=== PATIENT | male | born 1980 | race Caucasian/White ===

== ENCOUNTER 2016-12-03 14:40 | Inpatient (IN) | payer OTHER ==
--- NOTE | ~2016-12-03 | OP ---
Record Of Operation [facility] [address] [place]. [address] NAME: ARISTEO MUNGUIA : 76 STATUS : ADM IN [facility]#: [id number] AGE: 36 ADM/REG DATE : 12/03/16 MR#: [id number] REPORT SERV DATE: 12/04/16 DICTATED BY: JUICE TAYLOR DATE: 12/04/16 REPORT STATUS : Draft TRANSCRIBED BY: MODMarsha DATE: 12/04/16 DATE OF PROCEDURE: 12/04/2016 STRAIGHT TRUCK DRIVER: Romina Fischer. PREOPERATIVE DIAGNOSIS: Loculated left parapneumonic effusion. POSTOPERATIVE DIAGNOSIS: Loculated left parapneumonic effusion. OPERATION/PROCEDURE PERFORMED: 1. Left video-assisted thoracic surgery. 2. Left decortication. SPECIMENS REMOVED: Pleural peel and fluid. ESTIMATED BLOOD LOSS: 30 mL. COMPLICATIONS: None. INDICATIONS FOR PROCEDURE: Mr. Munguia is a 36-year-old gentleman, morbidly obese with a history of a rapidly enlarging loculated right pleural effusion. Risks, benefits, and alternatives were discussed with the patient. He was taken to the operating room. DESCRIPTION OF PROCEDURE: The patient was brought to the operating room and placed supine on the operating room table. After satisfactory induction of general endotracheal anesthesia, the bronchial ina was then placed. He was then log rolled in the left lateral decubitus position. Axillary roll was placed. Beanbag was aspirated. He was prepped and draped in the usual sterile fashion. A 3 cm incision was made in the seventh intercostal space in the mid axillary line. Skin and subcutaneous tissues were divided. The chest wall was encountered. The chest was entered in the interspace going over the rib. Wound protector was placed and the camera was introduced. There was a lot of inflammation, and working through the port, the loculated effusion was drained. Lung was freed up anteriorly, posteriorly, inferiorly to superiorly and medial to laterally. All the obvious peel was removed, sent for culture. The pleural fluid was sent for Gram stain and culture as well. The lung was inflated, it was felt that the lung filled the space, and the chest was irrigated, 32-Pashto chest tube was then placed to the apex and secured. The procedure was then terminated. The incision was closed with 0 Vicryl, 2-0 PDS, 3-0 PDS, and 4-0 Monocryl. Dry sterile dressings were placed. Chest tube was hooked to a bottle and then the patient was taken the CVICU on the ventilator. Khalida/RACHEL Juice Taylor MD Record Of [address] [address] NAME: ARISTEO MUNGUIA : 76 STATUS : ADM IN PAT#: [id number] AGE: 36 ADM/REG DATE : 12/03/16 MR#: [id number] REPORT SERV DATE: 12/04/16 DICTATED BY: JUICE TAYLOR DATE: 12/04/16 REPORT STATUS : Draft TRANSCRIBED BY: RACHEL DATE: 12/04/16 / [id number] CC: Juice Taylor MD
--- NOTE | ~2016-12-03 | DS ---
Discharge Summary [facility] [address] [place]. [address] NAME: ARISTEO MUNGUIA : 76 STATUS : DIS IN PAT#: [id number] AGE: 36 ADM/REG DATE : 12/03/16 MR#: [id number] REPORT SERV DATE: 12/19/16 DICTATED BY: JUICE TAYLOR DATE: 12/18/16 REPORT STATUS : Draft TRANSCRIBED BY: MODMarsha DATE: 12/18/16 Data Collection from hospitalization DISCHARGE DIAGNOSES: 1. Right pleural effusion-MRSA positive-empyema. 2. Type 2 diabetes mellitus. 3. Obstructive sleep apnea. 4. Renal insufficiency. 5. Morbid obesity. 6. Hypertension. CONSULTATIONS: Dr. Stephan Mckay, Dr. Johnie Causey. PROCEDURES PERFORMED: Right video-assisted thoracic surgery, right total decortication, 12/04/2016. DISCHARGE MEDICATIONS: Celexa 10 mg daily, Bydureon 2 mg subcutaneously every seven days, Lantus 50 units subcutaneously at bedtime, Humalog 25 units subcutaneously before meals and as instructed, Prinivil 20 mg daily, Glucophage 1000 mg with breakfast and supper, Percocet 10/325 one tablet every four hours as needed, vancomycin 1.5 g IV every 8 hours. CONDITION AT DISCHARGE: Stable. DISPOSITION: The patient was discharged home to be followed by Home Health Care on a 2000- calorie diabetic diet with activities as instructed. He would follow up with me, 01/01/[address] Johnie Causey, three weeks following discharge. HOSPITAL COURSE: This is a 36-year-old man who had the flu approximately a week and half prior to this admission. He has persistent illness and began to have nausea and vomiting and re-presented to the [place] emergency room twice on the week of this admission and was sent home without any intervention. He re-presented to [facility] and was hospitalized and had a CT scan performed, Saturday prior to this admission, which showed some basilar consolidation in the right lung without significant pleural effusion. He had severe pleuritic pain with inspiration and increasing shortness of breath. Repeat CT scan was performed on the day of this admission, which showed a very large right pleural effusion with near complete filling of the right chest and compressive atelectasis of most of the right lung. Because of this we were asked to transfer him to consider a surgical decortication. He was transferred here and admitted for further evaluation and treatment. Upon admission, CT scan of the chest had shown a large right pleural effusion with compressive atelectasis at nearly of the complete right lung. There was no pulmonary embolus or other acute findings noted. White count was 22.5. It was felt that the patient would need to undergo surgical decortication. The following day, the patient was taken to the operating room where he underwent the above-mentioned procedure, he tolerated this well, there were no complications. Postoperatively, he was seen by Dr. Stephan Mckay regarding ventilator management. He was now in the Cardiovascular ICU on the ventilator. His creatinine level was 1.3, white count was 31,000. Some ventilator changes were made by increasing his respiratory rate. Follow up ABG would be performed and we would continue to Discharge Summary [address] [place]. [address] NAME: ARISTEO MUNGUIA : 76 STATUS : DIS IN PAT#: [id number] AGE: 36 ADM/REG DATE : 12/03/16 MR#: [id number] REPORT SERV DATE: 12/19/16 DICTATED BY: JUICE TAYLOR DATE: 12/18/16 REPORT STATUS : Draft TRANSCRIBED BY: RACHEL DATE: 12/18/16 wean his ventilator as tolerated. He was going to be started on bronchodilator protocol. For sedation we were using Precedex and fentanyl. We would avoid propofol for now given his borderline blood pressure. While he was on the ventilator, he would be provided daily awakening trials to assess his mental status. On postop day one, he was extubated. His creatinine level was stable. Blood pressure was controlled. Levophed was being weaned. He was seen by Dr. Johnie Causey regarding empyema. The microbiology lab at [facility] revealed that one off two blood cultures had been growing coagulase negative Staph in the respiratory panel-presumably from the sputum. Here his pleural fluid culture was growing gram-positive cocci. Pleural peel was negative so far. Tracheal aspirate culture was growing Staph aureus. The patient had received Ancef at surgery and then levofloxacin. He reported an episode of nausea and vomiting while he was still at home as well as some constipation. His urination was a little slow. He had reported no skin lesions. He has no history of staph infections or boils. White blood cell count was 24. Creatinine was 1.0. He has been treated with Tamiflu for recent influenza. Vancomycin was going to begin, it was felt that he would probably not need levofloxacin unless there was some additional growth in the cultures. Ancef was stopped. He suggest changing the IV line from the IJ to another location with less risk for infection. antibiotics would be at least two weeks, but with empyema, it may be longer, as long as four to six weeks. On 12/06/2016, a PICC line was inserted. His T-max was 100.3. The next day he was up sitting in a chair, he said he was feeling good, he had no new complaints. His pain was tolerable. He was ambulatory. His chest tube was removed, we encouraged him to mobilize. Sliding scale insulin continued. Creatinine was stable and at baseline. He continued to do well. Discharge planning was performed on 12/08/2016. Discharge instructions were given. Due to his improved and stable condition, he was discharged home with the above-stated instructions. Information collected by: Melida Ackerman I submit the above information as my discharge summary. TG/RACHEL Juice Taylor MD / [id number] CC: Johnie Causey M.D.
--- NOTE | ~2016-12-03 | CN ---
Consultation Report [facility] [address] [place]. [address] NAME: ARISTEO MUNGUIA : 76 STATUS : ADM IN PAT#: [id number] AGE: 36 ADM/REG DATE : 12/03/16 MR#: [id number] REPORT SERV DATE: 12/04/16 DICTATED BY: CHELO MCKAY DATE: 12/04/16 REPORT STATUS : Draft TRANSCRIBED BY: MODL DATE: 12/04/16 CONSULT NOTE DATE OF CONSULTATION: 12/04/2016 REASON FOR CONSULTATION: Ventilator management. HISTORY OF PRESENT ILLNESS: The patient is a 36-year-old white gentleman with past medical history of type 2 diabetes as well as hypertension and sleep apnea, who was sent here for possible VATS procedure. Per the patient's chart, he had a flu illness about a week and a half ago that was associated with nausea and vomiting, and he presented to the emergency room at [facility] earlier this week. At which time, he was admitted and had a CT scan over the weekend that showed right basilar consolidation with no significant pleural effusion. He then had worsening pleuritic chest pain as well as increasing shortness of breath and had a followup CT scan performed earlier today that showed a very large right-sided effusion with atelectasis of the right lung and concerning for possible complicated parapneumonic effusion. He was then transferred here earlier today where he underwent a right-sided VATS with decortication and chest tube placement by Dr. Anguiano. He now comes to the CVICU on the ventilator. We are consulted for assistance of ventilator management. PAST MEDICAL HISTORY: 1. Hypertension. 2. Type 2 diabetes. 3. Obesity. 4. Sleep apnea. 5. History of knee arthroscopy. ALLERGIES: NO KNOWN DRUG ALLERGIES. SOCIAL HISTORY: No tobacco, alcohol, or IV drug abuse. FAMILY HISTORY: Positive for CVA and coronary artery disease in father. Mother had diabetes. Several healthy siblings. REVIEW OF SYSTEMS: Unable to obtain secondary to sedation and intubation. PHYSICAL EXAMINATION: VITAL SIGNS: Temperature 101.2, heart rate 123, respiratory rate 18, blood pressure 151/69. GENERAL: Sedated, intubated. HEENT: ET tube in place. Pupils equal, round, and reactive to light. NECK: Supple. Nontender. No lymphadenopathy. No thyromegaly. No jugular venous distention. LUNGS: Coarse breath sounds bilaterally. Consultation Report [facility] [address] [place]. [address] NAME: ARISTEO MUNGUIA : 78 STATUS : ADM IN PAT#: [id number] AGE: 36 ADM/REG DATE : 12/03/16 MR#: [id number] REPORT SERV DATE: 12/04/16 DICTATED BY: CHELO MCKAY DATE: 12/04/16 REPORT STATUS : Draft TRANSCRIBED BY: RACHEL DATE: 12/04/16 CARDIOVASCULAR: Tachycardic. No murmurs, rubs, or gallops. ABDOMEN: Soft, nontender, nondistended. Positive bowel sounds. No hepatosplenomegaly. EXTREMITIES: No cyanosis, clubbing, or edema. NEURO: Sedated. PSYCH: Unable to assess. LABS AND IMAGING: CBC with a white count of 31,000 with 77% neutrophils and 4% bands. Metabolic profile remarkable for BUN of 25, creatinine of 1.3. Initial blood gas with pH of 7.25, pCO2 of 56, PO2 of 82. ASSESSMENT AND PLAN: The patient is a 36-year-old gentleman with past medical history of diabetes and hypertension, who is now postop day #0 for right-sided VATS with decortication, chest tube placement for complicated parapneumonic effusion, currently on the ventilator. We are consulted to assist in ventilator management. We have made some ventilator changes by increasing his respiratory rate. We will get a followup ABG and continue to wean his ventilator as tolerated. Doubtful that he will be able to extubate tonight will likely be sometime in the next 24 to 48 hours. We will also start him on bronchodilator protocol. For sedation, we are using Precedex and fentanyl. Would avoid propofol for now given his borderline blood pressure. While he has been on the ventilator, we will provide daily awakening trials to assess mental status. We will continue follow along the patient with you. Please call with questions. I appreciate the consult. DARIAN/RACHEL Chelo Mckay MD / [id number] CC: eJremy Mercado Jr., M.D.
--- NOTE | ~2016-12-03 | HP ---
History And Physical [place] [address] [facility] [place]. [address] NAME: ARISTEO MUNGUIA : 76 STATUS : ADM IN [facility]#: [id number] AGE: 36 ADM/REG DATE : 12/03/16 MR#: [id number] REPORT SERV DATE: 12/04/16 DICTATED BY: JUICE TAYLOR DATE: 12/03/16 REPORT STATUS : Draft TRANSCRIBED BY: MODMarsha DATE: 12/03/16 DATE OF ADMISSION: 12/03/2016 REASON FOR ADMISSION: Large right pleural effusion. BRIEF HISTORY: This is a 36-year-old white male who had the flu in approximately a week and half ago. He had persistent illness and began having nausea, vomiting, and re-presented to [facility] twice this week and was sent home without any intervention. He re presented to [facility] and was hospitalized and underwent CT scan on Saturday, which showed some basilar consolidation in the right lung without significant pleural effusion. He had severe pleuritic pain with inspiration and increasing shortness of breath. Repeat CT scan was performed today, which showed a very large right pleural effusion with near complete filling of the right chest and compressive atelectasis of most of the right lung. Because of this, we were asked to transfer him to consider a surgical decortication. PAST MEDICAL HISTORY: Significant for hypertension; type 2 diabetes, insulin-dependent; obesity; and sleep apnea. PAST SURGICAL HISTORY: Includes a knee arthroscopy. ALLERGIES: NONE. HOME MEDICATIONS: Include Celexa 10 mg p.o. daily; Bydureon extended release injection 2 mg subcu q.7 days on Saturday; Lantus 50 units subcutaneous at bedtime; Humalog 25 units subcu before meals; Humalog sliding scale with blood sugar of 150 to 200 of 2 units, 200 to 250 of 4 units, 250 to 300 of 6 units; lisinopril 20 mg p.o. daily; and Glucophage 1000 mg p.o. with breakfast and supper. FAMILY HISTORY: Significant for father dying at age 67 of a stroke and myocardial infarction. Mother at age 57, complications from diabetes. He has two living sisters who are healthy with no problems and one brother who is healthy with no problems. SOCIAL HISTORY: This patient is with three children and works at [employer]. He does not smoke, he has never done so. He denies any drug use and has not drank alcohol in approximately five months. REVIEW OF SYSTEMS: Significant for chest pain, pleuritic in nature and shortness of breath. A complete 12- point review of systems done and all other systems negative except the above-mentioned pertinent positives in the history of present illness. PHYSICAL EXAMINATION: GENERAL: Alert, appearing his stated age, in no acute distress currently. CONSTITUTIONAL WITH VITAL SIGNS: 93% sat on 5 L, blood pressure 145/68, temperature 98.2, pulse 94, respirations 16 to 18 per minute, weight 170 kilos, and height 190.5 cm. HEAD, EARS, EYES, NOSE, AND THROAT: Normocephalic, atraumatic. Pupils equal, round, and History And Physical [address] [address] NAME: ARISTEO MUNGUIA : 76 STATUS : ADM IN [facility]#: [id number] AGE: 36 ADM/REG DATE : 12/03/16 MR#: [id number] REPORT SERV DATE: 12/04/16 DICTATED BY: JUICE TAYLOR DATE: 12/03/16 REPORT STATUS : Draft TRANSCRIBED BY: RACHEL DATE: 12/03/16 react to light. Ears, nose, and throat without drainage, lesions, or exudates noted. NECK: Supple. No lymphadenopathy, JVD, or bruits noted. Trachea midline with no obvious goiter. CHEST: Symmetrical with bilateral movement. No chest wall deformities noted. No axillary lymphadenopathy noted. CARDIOVASCULAR: Regular rate and rhythm, S1, S2. No gallop, murmur, or rub. RESPIRATORY: Decreased breath sounds in the right chest, left clear. No use of accessory muscles noted. GASTROINTESTINAL: Abdomen is soft, nontender, nondistended. Positive bowel sounds in all 4 quadrants. No hepatosplenomegaly noted. : The patient voids without difficulty, otherwise deferred. NEUROLOGICAL: All 12 cranial nerves intact. No focal neurologic deficits noted. SKIN: Warm and dry with no breakdown or lesions noted. Normal turgor. MUSCULOSKELETAL: Without obvious bony abnormalities. There is normal range of motion in all 4 extremities. EXTREMITIES: Without clubbing, cyanosis, or edema. 3+ pulses bilaterally. PSYCH: Normal mood, affect, and pleasant. Answers all questions appropriately. HEMATOLOGIC/LYMPHATIC: Without any obvious supraclavicular, axillary, or cervical lymphadenopathy. There is no ecchymosis or petechiae noted. DIAGNOSTIC DATA: CT of the chest performed today showing a large right pleural effusion with compressive atelectasis of nearly complete right lung. There is no pulmonary embolus or other acute findings noted. LABORATORY DATA: Performed on 12/02/2016 white blood count 22.5, hemoglobin 13.9, hematocrit 41.7, platelets 342. Sodium 131, potassium 4.3, BUN 29, creatinine 1.32, glucose 202, ALT 35, AST 12, alkaline phos 61, A1c 7.6. PROBLEM LIST: 1. Right pleural effusion. 2. Pleurisy. 3. Hypoxemia. 4. Insulin-dependent diabetes mellitus type 2. 5. Acute kidney injury with a creatinine of 1.3. 6. Obstructive sleep apnea. 7. Hypertension. 8. Obesity. IMPRESSION AND PLAN: A 36-year-old white male with a very large right pleural effusion with near complete compression of the right lung, likely parapneumonic in nature with his recent pleuritic type symptoms. He is currently stable, in no acute distress but still having extensive pleuritic pain with inspiration. CT today shows rapidly recurring pleural effusion when compared to two days ago. I see no other real alternative other than to proceed on with surgical decortication in this situation. I discussed the risks, benefits, and expected outcomes with the patient and his family and reviewed all of the films with him. They are in agreement to proceed. We will plan to proceed with surgery tomorrow afternoon. History And Physical [address] [address] NAME: ARISTEO MUNGUIA : 76 STATUS : ADM IN [facility]#: [id number] AGE: 36 ADM/REG DATE : 12/03/16 MR#: [id number] REPORT SERV DATE: 12/04/16 DICTATED BY: JUICE TAYLOR DATE: 12/03/16 REPORT STATUS : Draft TRANSCRIBED BY: RACHEL DATE: 12/03/16 DICTATED BY: REILLY Zuniga/RACHEL Juice Taylor MD / [id number] CC: Jeremy Mercado Jr., M.D.
--- NOTE | ~2016-12-03 | CN ---
Consultation Report [facility] [address] [place]. [address] NAME: ARISTEO MUNGUIA : 76 STATUS : ADM IN PAT#: [id number] AGE: 36 ADM/REG DATE : 12/03/16 MR#: [id number] REPORT SERV DATE: 12/05/16 DICTATED BY: JOHNIE CHANG DATE: 12/05/16 REPORT STATUS : Draft TRANSCRIBED BY: RACHEL DATE: 12/05/16 INFECTIOUS DISEASE CONSULT DATE OF CONSULTATION: REASON FOR CONSULT: Empyema. HISTORY OF PRESENT ILLNESS: A 36 years old white male with morbid obesity, hypertension and diabetes, was transferred from [facility] for empyema. About ten days prior to this admission, he became ill with a cough, had congestion and was diagnosed with influenza by his PCP. Was treated with Tamiflu. Several days later, he tried to go to work, but developed shortness of breath and dyspnea on exertion. He went two or three times to emergency rooms in the [place] because of the shortness of breath and also developed some right-sided chest pain increased by deep breaths. Apparently, he did not receive any additional treatment. He went home, but the pain and the shortness of breath increased, so he called an ambulance and was taken to [facility] around 12/01. There, he had severe leukocytosis. A CT scan showed right lower lobe and right middle lobe consolidations, possibly some early right upper lobe consolidation. He was started on Levaquin. Followup CT showed loculated moderate-sized effusion and for that reason, he was transferred to [facility] yesterday on the . I discussed with Microbiology Lab at [facility], and I was told that one of two blood cultures on admission are growing coagulase-negative Staph in the respiratory panel, I presume from the sputum, and I presume by some form of nucleic acid amplification. It came positive for MRSA with a positive Celestine-Caba gene. After being transferred to [facility], he was taken to the operating room and had a thoracoscopic decortication. There is a lot of inflammation. The pleural fluid culture is growing gram-positive cocci. Pleural peel culture is negative so far, and the tracheal aspirate culture is growing Staph aureus. The patient received Ancef at surgery and then levofloxacin. He reported an episode of nausea and vomiting while he was still at home, maybe some constipation. The urination was a little slow. He reports no skin lesions. No history of staph infections or boils. PAST MEDICAL HISTORY: As I mentioned above. He tries to follow diabetic diet. FAMILY HISTORY: Coronary artery disease, stroke and diabetes. SOCIAL HISTORY: He works in [employer]. He is . Has three children. He thinks his boss had the flu recently. He has a dog and a pig. MEDICATIONS ON ADMISSION: Celexa, Bydureon insulin, lisinopril, and metformin. ALLERGIES: NONE. Consultation Report [facility] [address] [place]. [address] NAME: ARISTEO MUNGUIA : 76 STATUS : ADM IN [facility]#: [id number] AGE: 36 ADM/REG DATE : 12/03/16 MR#: [id number] REPORT SERV DATE: 12/05/16 DICTATED BY: JOHNIE CHANG DATE: 12/05/16 REPORT STATUS : Draft TRANSCRIBED BY: RACHEL DATE: 12/05/16 PHYSICAL EXAMINATION: GENERAL: He was extubated this morning. He is alert and awake. HEENT: He has no toothaches. Dentition seems to be in fair shape. He has a left wrist A- line and a right IJ line. LUNGS: Decreased over the right lung field. A little coarse on the left. HEART: Regular rhythm. Distant sounds. ABDOMEN: Obese, nontender to palpation. He has a right-side chest tube and a Garcia catheter. LAB WORK: Here, WBC 24, segments 84, bands 1, creatinine 1.0, hemoglobin 11. Urinalysis, with some protein, 0 bacteria, and 5 white blood cells. ASSESSMENT AND PLAN: 1. Right pneumonia with empyema, status post decortication. Postoperative day 1. 2. Recent influenza reported by the patient. Treated with Tamiflu. 3. History of diabetes, hypertension, and obesity. Preliminary cultures from [facility] and a test done at [facility] from the sputum suggest an MRSA infection. We will start vancomycin. He will probably not need levofloxacin unless there is some additional growth in cultures. Discontinue Ancef. Suggest changing the IV line from the IJ to another location with less risk of infection. The duration of antibiotics will be at least two weeks, but with empyema, it might be longer, as long as four to six weeks. I discussed with the patient and his . ELSIE/RACHEL Johnie Chang M.D. / [id number] CC: Jeremy Mercado Jr., M.D.
[2016-12-03] MEDS ORDERED: LANTUS SC (15:11)
[2016-12-03] MEDS ORDERED: HUMALOG SC ×2 (15:12→15:13)
[2016-12-03] MEDS ORDERED: BYDUREON2 MG SQ (15:14)
[2016-12-03] MEDS ORDERED: GLUCOPHAGE1000 MG PO (15:14)
[2016-12-03] MEDS ORDERED: PRIN20 PO (15:15)
[2016-12-03] MEDS ORDERED: CELEXA10 PO (15:15)
[2016-12-03 21:02] LABS: ASCORBIC ACID (UR NOT ORDER) NEG (NEG); BILIRUBIN, URINE NEGATIVE (NEG); KETONE, URINE NEGATIVE (NEG); LEUKOCYTE ESTERASE(NOT OR NEG (NEG); WBC (NOT ORDERED) (RFLEX) 5 (0-5)
[2016-12-04 05:11] LABS: HEMATOCRIT 35.3 % (40.0-51.0); HEMOGLOBIN 11.9 g/dL (13.6-17.8); MEAN CORPUS HGB CONC 33.7 g/dL (32.0-36.0); MEAN CORPUSCULAR HEMOGLOB 30.4 pg (26.0-34.0); MEAN CORPUSCULAR VOLUME 90.3 fL (80-100); MEAN PLATELET VOLUME 9.6 fL (9.2-13.0); PLATELET COUNT 294 10/3/uL (150-400); RBC DISTRIBUTION WIDTH 13.5 % (12.0-16.0); RED CELL COUNT 3.91 10/6/uL (4.7-6.1)
[2016-12-04 05:13] LABS: WHITE BLOOD CELLS 25.8 10/3/uL (4.5-10.5)
[2016-12-04 05:14] LABS: MANUAL DIFF YES %
[2016-12-04 05:18] LABS: INTERNATIONAL NORMAL RATI 1.3 UNITS (-); PARTIAL THROMBO TIME 37.1 SEC (22.5-37.2); PROTIME (NOT ORD) 16.5 SEC (12.0-14.5)
[2016-12-04 05:27] LABS: A/G RATIO 0.4 (0.7-1.9); ALBUMIN 2.2 G/DL (3.5-5.0); ALKALINE PHOSPHATASE 64 U/L (45-117); BUN (BLOOD UREA NITROGEN) 23 MG/DL (6-23); CALCIUM, SERUM 8.6 MG/DL (8.5-10.4); CHLORIDE, SERUM 100 MMOL/L (96-112); CO2 (CARBON DIOXIDE) 25 MMOL/L (24-34); CREATININE 1.25 MG/DL (0.70-1.30); GFR AFRICAN AMERICAN 84 ML/MIN (>=60); GFR NON AFRICAN AMERICAN 73 ML/MIN (>=60); GLOBULIN 4.9 G/DL (2.5-4.1); GLUCOSE, SERUM 158 MG/DL (60-99); POTASSIUM, SERUM 4.5 MMOL/L (3.5-5.3); SGOT(AST) 13 U/L (5-40); SGPT(ALT) 18 U/L (5-65); SODIUM, SERUM 135 MMOL/L (135-148); TOTAL PROTEIN 7.1 G/DL (6.0-8.5)
[2016-12-04 05:45] LABS: BAND NEUTROPHILS 9 %; LYMPHOCYTES 5 %; LYMPHOCYTES ABSOLUTE (CALC) 1.29 10/3/uL (0.67-4.30); MONOCYTES 14 %; MONOCYTES ABSOLUTE (CALC) 3.61 10/3/uL (0.21-1.20); PLATELET ESTIMATE ADQ (ADEQUATE); SEGMENTED NEUTROPHIL (0) 72 %; TOTAL NUCLEATED CELLS 100
[2016-12-04 05:46] LABS: RBC MORPHOLOGY NORM (NORMAL)
[2016-12-04 18:18] LABS: BE (BASE EXCESS) -4.3 MEQ/L (0 +/- 2.5); CARBOXYHEMOGLOBIN 0.9 % (0-3); HCO3 (ACTUAL BICARBONATE) 23.7 MEQ/L (23-27); HEMOBLOGIN CONTENT 13.1 G/DL (14-18); INSTRUMENT SERIAL # 11843; METHEMOGLOBIN 0.5 % (0-3); MODE CMV; O2 CONTENT 17.2 VOL% (18-24); OPERATOR ID 18642; PCO2 (CO2 TENSION) 56 MMHG (35-45); PO2 (O2 TENSION) 82 MMHG (79-93); SAMPLE Arterial; TIDAL VOLUME 800 ML; pH 7.25 (7.37-7.43)
[2016-12-04 18:50] LABS: HEMATOCRIT 36.5 % (40.0-51.0); HEMOGLOBIN 12.2 g/dL (13.6-17.8); MEAN CORPUS HGB CONC 33.4 g/dL (32.0-36.0); MEAN CORPUSCULAR HEMOGLOB 30.8 pg (26.0-34.0); MEAN CORPUSCULAR VOLUME 92.2 fL (80-100); MEAN PLATELET VOLUME 9.7 fL (9.2-13.0); PLATELET COUNT 399 10/3/uL (150-400); RBC DISTRIBUTION WIDTH 13.4 % (12.0-16.0); RED CELL COUNT 3.96 10/6/uL (4.7-6.1); WHITE BLOOD CELLS 31.6 10/3/uL (4.5-10.5)
[2016-12-04 18:51] LABS: MANUAL DIFF YES %
[2016-12-04 18:55] LABS: BUN (BLOOD UREA NITROGEN) 25 MG/DL (6-23); CALCIUM, SERUM 8.8 MG/DL (8.5-10.4); CHLORIDE, SERUM 99 MMOL/L (96-112); CO2 (CARBON DIOXIDE) 26 MMOL/L (24-34); CREATININE 1.37 MG/DL (0.70-1.30); GFR AFRICAN AMERICAN 75 ML/MIN (>=60); GFR NON AFRICAN AMERICAN 65 ML/MIN (>=60); GLUCOSE, SERUM 212 MG/DL (60-99); POTASSIUM, SERUM 4.9 MMOL/L (3.5-5.3); SODIUM, SERUM 136 MMOL/L (135-148)
[2016-12-04 19:07] LABS: BAND NEUTROPHILS 4 %; EOSINOPHILS 1 %; EOSINOPHILS ABSOLUTE (CALC) 0.32 10/3/uL (0.0-0.53); LYMPHOCYTES 4 %; LYMPHOCYTES ABSOLUTE (CALC) 1.26 10/3/uL (0.67-4.30); METAMYELOCYTES 4 %; MONOCYTES 8 %; MONOCYTES ABSOLUTE (CALC) 2.53 10/3/uL (0.21-1.20); MYELOCYTES 2 %; SEGMENTED NEUTROPHIL (0) 77 %; TOTAL NUCLEATED CELLS 100
[2016-12-04 19:08] LABS: PLATELET ESTIMATE ADQ (ADEQUATE); TOXIC GRANULATION SLT
[2016-12-04 20:05] LABS: CARBOXYHEMOGLOBIN 0.4 % (0-3); HCO3 (ACTUAL BICARBONATE) 20.5 MEQ/L (23-27); INSTRUMENT SERIAL # 11843; METHEMOGLOBIN 0.4 % (0-3); MODE SIMV; O2 CONTENT 16.4 VOL% (18-24); OPERATOR ID 13415; PCO2 (CO2 TENSION) 40 MMHG (35-45); PO2 (O2 TENSION) 107 MMHG (79-93); SAMPLE Arterial; TIDAL VOLUME 800 ML; pH 7.33 (7.37-7.43)
[2016-12-05 04:41] LABS: HEMOGLOBIN 11.1 g/dL (13.6-17.8); MEAN CORPUS HGB CONC 33.8 g/dL (32.0-36.0); MEAN CORPUSCULAR HEMOGLOB 30.6 pg (26.0-34.0); MEAN CORPUSCULAR VOLUME 90.4 fL (80-100); MEAN PLATELET VOLUME 9.7 fL (9.2-13.0); PLATELET COUNT 357 10/3/uL (150-400); RBC DISTRIBUTION WIDTH 13.2 % (12.0-16.0); RED CELL COUNT 3.63 10/6/uL (4.7-6.1); WHITE BLOOD CELLS 24.1 10/3/uL (4.5-10.5)
[2016-12-05 04:50] LABS: BUN (BLOOD UREA NITROGEN) 24 MG/DL (6-23); CALCIUM, SERUM 8.5 MG/DL (8.5-10.4); CHLORIDE, SERUM 103 MMOL/L (96-112); CO2 (CARBON DIOXIDE) 24 MMOL/L (24-34); CREATININE 1.07 MG/DL (0.70-1.30); GFR AFRICAN AMERICAN 102 ML/MIN (>=60); GFR NON AFRICAN AMERICAN 88 ML/MIN (>=60); GLUCOSE, SERUM 232 MG/DL (60-99); POTASSIUM, SERUM 4.7 MMOL/L (3.5-5.3); SODIUM, SERUM 138 MMOL/L (135-148)
[2016-12-05 04:51] LABS: HEMATOCRIT 32.8 % (40.0-51.0); MANUAL DIFF YES %
[2016-12-05 05:08] LABS: BAND NEUTROPHILS 1 %; IMMATURE GRANS ABSOLUTE (CALC) 0.72 10/3/uL (0.0-0.11); LYMPHOCYTES 4 %; LYMPHOCYTES ABSOLUTE (CALC) 0.96 10/3/uL (0.67-4.30); METAMYELOCYTES 2 %; MONOCYTES 8 %; MONOCYTES ABSOLUTE (CALC) 1.93 10/3/uL (0.21-1.20); MYELOCYTES 1 %; NEUTROPHILS ABSOLUTE (CALC) 20.49 10/3/uL (2.02-8.40); SEGMENTED NEUTROPHIL (0) 84 %; TOTAL NUCLEATED CELLS 100
[2016-12-05 09:23] LABS: BE (BASE EXCESS) 0.2 MEQ/L (0 +/- 2.5); CARBOXYHEMOGLOBIN 0.1 % (0-3); DEVICE HFNC; HCO3 (ACTUAL BICARBONATE) 23.2 MEQ/L (23-27); HEMOBLOGIN CONTENT 12.1 G/DL (14-18); INSTRUMENT SERIAL # 11843; METHEMOGLOBIN 0.3 % (0-3); O2 CONTENT 16.3 VOL% (18-24); OPERATOR ID 32214; PCO2 (CO2 TENSION) 32 MMHG (35-45); PO2 (O2 TENSION) 78 MMHG (79-93); SAMPLE Arterial; pH 7.47 (7.37-7.43)
[2016-12-05 13:51] LABS: BUN (BLOOD UREA NITROGEN) 23 MG/DL (6-23); CALCIUM, SERUM 8.3 MG/DL (8.5-10.4); CHLORIDE, SERUM 100 MMOL/L (96-112); CO2 (CARBON DIOXIDE) 28 MMOL/L (24-34); CREATININE 0.99 MG/DL (0.70-1.30); GFR AFRICAN AMERICAN 112 ML/MIN (>=60); GFR NON AFRICAN AMERICAN 96 ML/MIN (>=60); POTASSIUM, SERUM 4.5 MMOL/L (3.5-5.3); SODIUM, SERUM 139 MMOL/L (135-148)
[2016-12-05 13:52] LABS: GLUCOSE, SERUM 155 MG/DL (60-99)
[2016-12-06 03:40] LABS: HEMATOCRIT 31.8 % (40.0-51.0); HEMOGLOBIN 10.4 g/dL (13.6-17.8); MEAN CORPUS HGB CONC 32.7 g/dL (32.0-36.0); MEAN CORPUSCULAR HEMOGLOB 30.1 pg (26.0-34.0); MEAN CORPUSCULAR VOLUME 92.2 fL (80-100); MEAN PLATELET VOLUME 9.3 fL (9.2-13.0); PLATELET COUNT 304 10/3/uL (150-400); RBC DISTRIBUTION WIDTH 13.3 % (12.0-16.0); RED CELL COUNT 3.45 10/6/uL (4.7-6.1); WHITE BLOOD CELLS 17.9 10/3/uL (4.5-10.5)
[2016-12-06 03:45] LABS: MANUAL DIFF YES %
[2016-12-06 04:07] LABS: CALCIUM, SERUM 8.3 MG/DL (8.5-10.4); CHLORIDE, SERUM 100 MMOL/L (96-112); CO2 (CARBON DIOXIDE) 30 MMOL/L (24-34); FREE T4 1.87 NG/DL (0.76-1.46); GFR AFRICAN AMERICAN 139 ML/MIN (>=60); GFR NON AFRICAN AMERICAN 120 ML/MIN (>=60); SODIUM, SERUM 137 MMOL/L (135-148); ULTRASENSITIVE TSH 0.208 MCIU/ML (0.358-3.740)
[2016-12-06 04:14] LABS: BUN (BLOOD UREA NITROGEN) 17 MG/DL (6-23); GLUCOSE, SERUM 119 MG/DL (60-99)
[2016-12-06 04:18] LABS: BE (BASE EXCESS) 3.9 MEQ/L (0 +/- 2.5); CARBOXYHEMOGLOBIN 0.4 % (0-3); DEVICE nc; HCO3 (ACTUAL BICARBONATE) 28.5 MEQ/L (23-27); HEMOBLOGIN CONTENT 12.4 G/DL (14-18); INSTRUMENT SERIAL # 11843; METHEMOGLOBIN 0.3 % (0-3); O2 CONTENT 16.4 VOL% (18-24); OPERATOR ID 334499; PCO2 (CO2 TENSION) 43 MMHG (35-45); PO2 (O2 TENSION) 74 MMHG (79-93); SAMPLE Arterial; pH 7.44 (7.37-7.43)
[2016-12-06 04:57] LABS: BAND NEUTROPHILS 3 %; IMMATURE GRANS ABSOLUTE (CALC) 0.36 10/3/uL (0.0-0.11); LYMPHOCYTES 7 %; LYMPHOCYTES ABSOLUTE (CALC) 1.25 10/3/uL (0.67-4.30); METAMYELOCYTES 1 %; MONOCYTES 5 %; MYELOCYTES 1 %; NEUTROPHILS ABSOLUTE (CALC) 15.39 10/3/uL (2.02-8.40); SEGMENTED NEUTROPHIL (0) 83 %; TOTAL NUCLEATED CELLS 100
[2016-12-06 05:00] LABS: TOXIC GRANULATION SLT
[2016-12-06 05:03] LABS: PLATELET ESTIMATE ADQ (ADEQUATE); RBC MORPHOLOGY NORM (NORMAL)
[2016-12-07 04:10] LABS: HEMOGLOBIN 10.9 g/dL (13.6-17.8); MEAN CORPUS HGB CONC 34.1 g/dL (32.0-36.0); MEAN CORPUSCULAR HEMOGLOB 31.5 pg (26.0-34.0); MEAN CORPUSCULAR VOLUME 92.5 fL (80-100); MEAN PLATELET VOLUME 9.4 fL (9.2-13.0); PLATELET COUNT 315 10/3/uL (150-400); RED CELL COUNT 3.46 10/6/uL (4.7-6.1); WHITE BLOOD CELLS 16.4 10/3/uL (4.5-10.5)
[2016-12-07 04:12] LABS: CALCIUM, SERUM 8.5 MG/DL (8.5-10.4); CHLORIDE, SERUM 101 MMOL/L (96-112); CO2 (CARBON DIOXIDE) 30 MMOL/L (24-34); CREATININE 0.73 MG/DL (0.70-1.30); GFR AFRICAN AMERICAN 136 ML/MIN (>=60); GFR NON AFRICAN AMERICAN 118 ML/MIN (>=60); GLUCOSE, SERUM 140 MG/DL (60-99); POTASSIUM, SERUM 3.8 MMOL/L (3.5-5.3); SODIUM, SERUM 140 MMOL/L (135-148); VANCOMYCIN TROUGH 12.5 MCG/ML (10.0-20.0)
[2016-12-07 04:13] LABS: BUN (BLOOD UREA NITROGEN) 13 MG/DL (6-23)
[2016-12-07 04:17] LABS: MANUAL DIFF YES %
[2016-12-07 06:37] LABS: BAND NEUTROPHILS 4 %; EOSINOPHILS 1 %; EOSINOPHILS ABSOLUTE (CALC) 0.16 10/3/uL (0.0-0.53); IMMATURE GRANS ABSOLUTE (CALC) 0.33 10/3/uL (0.0-0.11); LYMPHOCYTES 11 %; METAMYELOCYTES 2 %; MONOCYTES 1 %; MONOCYTES ABSOLUTE (CALC) 0.16 10/3/uL (0.21-1.20); NEUTROPHILS ABSOLUTE (CALC) 13.94 10/3/uL (2.02-8.40); PLATELET ESTIMATE ADQ (ADEQUATE); RBC MORPHOLOGY NORM (NORMAL); SEGMENTED NEUTROPHIL (0) 81 %; TOTAL NUCLEATED CELLS 100
[2016-12-07] MEDS ORDERED: VANCO1P IV (15:55)
[2016-12-07] MEDS ORDERED: PERCOCET 10/3251 TAB PO (15:55)
== END 2016-12-08 17:14 | disposition home or self-care (01) | DRG 163 ==
LOC: 5NO 14:40 → CVICU 12-04 16:52 → 5NO 12-06 18:55
PROVIDERS: Internal Medicine Critical Care Medicine; Internal Medicine Infectious Disease; Nurse Practitioner Acute Care; Thoracic Surgery (Cardiothoracic Vascular Surgery)
PROC: 5A1945Z Respiratory Ventilation, 24-96 Consecutive Hours (ICD-10-PCS; 2016-12-04)
PROC: 0BH17EZ Insertion of Endotracheal Airway into Trachea, Via Natural or Artificial Opening (ICD-10-PCS; 2016-12-04)
PROC: 0BDP0ZZ Extraction of Left Pleura, Open Approach (ICD-10-PCS; principal; 2016-12-04 14:45)
PROC: 02HV33Z Insertion of Infusion Device into Superior Vena Cava, Percutaneous Approach (ICD-10-PCS; 2016-12-06)
PROC: 4A02X4A Measurement of Cardiac Electrical Activity, Guidance, External Approach (ICD-10-PCS; 2016-12-06)
DX: J90 Pleural effusion, not elsewhere classified (principal); J86.9 Pyothorax without fistula; N17.9 Acute kidney failure, unspecified; Z68.42 Body mass index [BMI] 45.0-49.9, adult; I10 Essential (primary) hypertension; E11.9 Type 2 diabetes mellitus without complications; B95.62 Methicillin resistant Staphylococcus aureus infection as the cause of diseases classified elsewhere; Z79.4 Long term (current) use of insulin; G47.33 Obstructive sleep apnea (adult) (pediatric); E66.9 Obesity, unspecified; Z82.49 Family history of ischemic heart disease and other diseases of the circulatory system; Z82.3 Family history of stroke; Z83.3 Family history of diabetes mellitus; E66.01 Morbid (severe) obesity due to excess calories
CPT/HCPCS: 31720; 36415; 71010; 71020; 80048; 80053; 80202; 81001; 82805; 82962; 83735; 84100; 84145; 84439; 84443; 85025; 85347; 85610; 85730; 86850; 86900; 86901; 86920; 87015; 87040; 87070; 87075; 87077; 87102; 87116; 87186; 87205; 87641; 93005; 94002; 94003; 94640; 94660; 94770; A9270-GY; J0461; J0690; J1170; J1956; J2250; J2370; J2405; J2795; J3010; J3370; J3480

== ENCOUNTER → 2016-12-08 | Emergency (ER) | payer OTHER ==
[~2016-12-08] MED LIST: BYDUREON2 MG SQ; CELEXA10 PO; GLUCOPHAGE1000 MG PO; HUMALOG SC; LANTUS SC; PERCOCET 10/3251 TAB PO; PRIN20 PO; VANCO1P IV
[2016-12-09 00:10] LABS: ASCORBIC ACID (UR NOT ORDER) 40 (NEG); BILIRUBIN, URINE NEGATIVE (NEG); ER URINALYSIS TAT 0 Hrs 00 Mins; KETONE, URINE NEGATIVE (NEG); LEUKOCYTE ESTERASE(NOT OR NEG (NEG); NITRITE (URINE) NEG (NEG); WBC (NOT ORDERED) (RFLEX) 2 (0-5)
[2016-12-09 00:12] LABS: HEMATOCRIT 32.5 % (40.0-51.0); HEMOGLOBIN 10.8 g/dL (13.6-17.8); MEAN CORPUS HGB CONC 33.2 g/dL (32.0-36.0); MEAN CORPUSCULAR HEMOGLOB 30.1 pg (26.0-34.0); MEAN CORPUSCULAR VOLUME 90.5 fL (80-100); MEAN PLATELET VOLUME 9.7 fL (9.2-13.0); PLATELET COUNT 348 10/3/uL (150-400); RBC DISTRIBUTION WIDTH 13.3 % (12.0-16.0); RED CELL COUNT 3.59 10/6/uL (4.7-6.1)
[2016-12-09 00:17] LABS: MANUAL DIFF YES %; WHITE BLOOD CELLS 24.1 10/3/uL (4.5-10.5)
[2016-12-09 00:30] LABS: A/G RATIO 0.4 (0.7-1.9); ALBUMIN 2.2 G/DL (3.5-5.0); BUN (BLOOD UREA NITROGEN) 10 MG/DL (6-23); CALCIUM, SERUM 8.5 MG/DL (8.5-10.4); CHLORIDE, SERUM 97 MMOL/L (96-112); CO2 (CARBON DIOXIDE) 29 MMOL/L (24-34); CREATININE 0.73 MG/DL (0.70-1.30); GFR AFRICAN AMERICAN 136 ML/MIN (>=60); GFR NON AFRICAN AMERICAN 118 ML/MIN (>=60); GLOBULIN 5.2 G/DL (2.5-4.1); GLUCOSE, SERUM 114 MG/DL (60-99); POTASSIUM, SERUM 3.8 MMOL/L (3.5-5.3); SGOT(AST) 26 U/L (5-40); SGPT(ALT) 36 U/L (5-65); SODIUM, SERUM 136 MMOL/L (135-148); TOTAL BILIRUBIN 0.6 MG/DL (0-1.2); TOTAL PROTEIN 7.4 G/DL (6.0-8.5)
[2016-12-09 00:35] LABS: ALKALINE PHOSPHATASE 86 U/L (45-117)
[2016-12-09 00:37] LABS: BAND NEUTROPHILS 4 %; ER DIFF TAT 0 Hrs 37 Mins; IMMATURE GRANS ABSOLUTE (CALC) 0.48 10/3/uL (0.0-0.11); LYMPHOCYTES 9 %; LYMPHOCYTES ABSOLUTE (CALC) 2.17 10/3/uL (0.67-4.30); MONOCYTES 4 %; MONOCYTES ABSOLUTE (CALC) 0.96 10/3/uL (0.21-1.20); MYELOCYTES 2 %; NEUTROPHILS ABSOLUTE (CALC) 20.49 10/3/uL (2.02-8.40); PLATELET ESTIMATE ADQ (ADEQUATE); RBC MORPHOLOGY NORM (NORMAL); SEGMENTED NEUTROPHIL (0) 81 %; TOTAL NUCLEATED CELLS 100
== END | disposition home or self-care (01) ==
LOC: ER 22:59
PROVIDERS: Emergency Medicine
DX: J18.9 Pneumonia, unspecified organism (principal); I10 Essential (primary) hypertension; Z79.4 Long term (current) use of insulin; Z79.899 Other long term (current) drug therapy
CPT/HCPCS: 71020; 80053; 81001; 85025; 87040; 93005; 99285; J1170